=== PATIENT | female | born 1980 | race Caucasian/White ===

== ENCOUNTER 2022-01-15 20:28 | Emergency (ER) | payer SELFPAY | END 2022-01-15 21:33 | LOC: MW.ED 20:28 | DX: F10.129 Alcohol abuse with intoxication, unspecified (principal); S91.114A Laceration without foreign body of right lesser toe(s) without damage to nail, initial encounter; S00.81XA Abrasion of other part of head, initial encounter; Y04.2XXA Assault by strike against or bumped into by another person, initial encounter | CPT/HCPCS: 99283 ==